=== PATIENT | male | born 1980 | race Caucasian/White ===

== ENCOUNTER 2021-03-22 22:44 | Emergency (ER) | payer OTHER ==
[~2021-03-22] VITALS: Ht 175.3 cm; Wt 83.9 kg
[2021-03-22] MEDS ORDERED: ONDANSETRON ODT 4 MG TAB PO ONE (23:00)
[2021-03-23 00:22] VITALS: BP 117/72
== END 2021-03-23 00:41 | disposition home or self-care (01) ==
LOC: ER 22:44
DX: S06.0X1A Concussion with loss of consciousness of 30 minutes or less, initial encounter (principal); S00.03XA Contusion of scalp, initial encounter; R11.2 Nausea with vomiting, unspecified; Y04.8XXA Assault by other bodily force, initial encounter; Y93.71 Activity, boxing; Y92.89 Other specified places as the place of occurrence of the external cause; Y99.8 Other external cause status
CPT/HCPCS: 70450; 72125; 93005; 99285; Q0162